=== PATIENT | male | born 2000 | race Caucasian/White ===

== ENCOUNTER 2020-11-24 12:41 | Emergency (ER) | payer SELFPAY ==
[~2020-11-24] VITALS: Ht 172.7 cm; Wt 65.8 kg
[2020-11-24 14:11] VITALS: BP 142/89; Ht 172.7 cm; Wt 65.8 kg
== END 2020-11-24 15:21 | disposition home or self-care (01) ==
LOC: ED 12:41
DX: L03.90 Cellulitis, unspecified (principal); R03.0 Elevated blood-pressure reading, without diagnosis of hypertension